=== PATIENT | female | born 1970 | race Caucasian/White ===

== ENCOUNTER 2017-07-12 12:29 | Emergency (ER) | payer BC, OTHER ==
[~2017-07-12] VITALS: Ht 162.6 cm; Wt 93.2 kg
[2017-07-12 12:34] VITALS: TEMP 36.4; Ht 162.6 cm; Wt 93.2 kg
[2017-07-12] MEDS ORDERED: HYDROmorphone INJ 1 MG/ML SYR IV STA (12:51)
[2017-07-12] MEDS ORDERED: ONDANSETRON INJ 2 MG/ML 2 ML VIAL IV STA (12:51)
[2017-07-12 13:23] LABS: BASO % 0.3 %; BASO ABS # 0.03 K/uL (0-0.2); EOS % 2.9 %; EOS ABS # 0.34 K/uL (0-0.5); HEMATOCRIT 49.1 % (37-47); HEMOGLOBIN 17.6 g/dL (12.0-16.0); IG# 0.06 K/uL (0.00-0.02); LYMPH % 28.3 %; LYMPH ABS # 3.27 K/uL (1.2-3.4); MEAN CELL VOLUME 93.7 fL (80-100); MEAN CORPUSCULAR HEMOGLOBIN 33.6 pg (25-34); MEAN CORPUSCULAR HGB CONC 35.8 g/dl (32-36); MEAN PLATELET VOLUME 11.4 fL (7.4-10.4); MONO % 8.5 %; MONO ABS # 0.98 K/uL (0.11-0.59); NEUT % 59.5 %; NEUT ABS # 6.87 K/uL (1.4-6.5); PLATELET COUNT 239 K/uL (130-400); RED CELL DISTRIBUTION WIDTH CV 13.3 % (11.5-14.5); RED CELL DISTRIBUTION WIDTH SD 45.1 fL (36.4-46.3); WHITE BLOOD COUNT 11.55 K/uL (4.8-10.8)
[2017-07-12] MEDS ORDERED: MIRT30TA2 PO (13:25)
[2017-07-12] MEDS ORDERED: LISI-789 PO (13:25)
[2017-07-12] MEDS ORDERED: CHOL1000 PO (13:25)
[2017-07-12] MEDS ORDERED: TRAZ100T29 PO (13:25)
[2017-07-12] MEDS ORDERED: ALPR1TAB3 PO (13:25)
[2017-07-12] MEDS ORDERED: OXYC1TAB3 PO (13:25)
[2017-07-12] MEDS ORDERED: PROM6.2521 PO (13:25)
[2017-07-12] MEDS ORDERED: OXYC20TA50 PO (13:25)
[2017-07-12] MEDS ORDERED: LEVO150T9 PO (13:25)
[2017-07-12] MEDS ORDERED: ERGO500037 PO (13:25)
[2017-07-12] MEDS ORDERED: PANT40TA PO (13:25)
--- NOTE | 2017-07-12 13:28 | DIAGNOSTIC IMAGING REPORT ---
CHEST ONE VIEW PORTABLE CLINICAL HISTORY: 47 years-old Female presenting with cough . TECHNIQUE: Portable upright AP view of the chest was obtained. COMPARISON: None. FINDINGS: Cardiomediastinal silhouette normal. Lungs and pleural spaces clear. Partially visualized anterior cervical fusion hardware. Upper abdomen normal. IMPRESSION: 1. No acute cardiopulmonary disease. Electronically signed by: Shailesh Pyle M.D. 07/12/2017 1:26 PM Dictated Date/Time: 07/12/2017 1:26 PM
[2017-07-12 13:39] LABS: CALCIUM 9.1 mg/dl (8.5-10.1); CREATININE 1.06 mg/dl (0.60-1.20); POTASSIUM 3.7 mmol/L (3.5-5.1)
[2017-07-12] MEDS ORDERED: LORAZEPAM 1 MG TAB SL STA (13:52)
--- NOTE | 2017-07-12 15:08 | DIAGNOSTIC IMAGING REPORT ---
LUMBAR SPINE W/O CONTRAST CLINICAL HISTORY: 47 years-old Female presenting with severe lower back pain L leg weak, recent flu symptoms, now with saddle anesthesia after coughing spell, pain radiating down the left leg, numbness and tingling in the left leg. TECHNIQUE: Multisequence, multiplanar MR imaging of the lumbar spine was performed without the use of intravenous contrast. IV contrast: None. COMPARISON: 05/29/2016. FINDINGS: Localizer images: Unremarkable. Bilateral transpedicular screw and sherin fixation of L4-5. Regional susceptibility artifact slightly limits evaluation. Interbody spacer at L4-5 noted. Susceptibility artifact in the superficial soft tissues consistent with postsurgical change. Vertebral bodies demonstrate normal height, alignment, and bone marrow signal intensity. Intervertebral disc spaces at the nonoperative levels are preserved with the exception of L5-S1, which has disc desiccation and mild height loss. There is mild bilateral neural foraminal narrowing at L5-S1 as result. The remaining nonoperative levels demonstrate no evidence of significant degenerative change. No spinal canal narrowing. No other neural foraminal narrowing. Spinal cord ends in good position at L1. Cauda equina normal in morphology. Paraspinal soft tissues within normal limits apart from postoperative change. IMPRESSION: 1. Postsurgical changes of L4-5 posterior lumbar fusion with interbody spacer. 2. Mild degenerative change at L5-S1. Resulting mild bilateral neural foraminal narrowing. 3. No evidence of degenerative change at the remaining levels. No spinal canal. Electronically signed by: Shailesh Pyle M.D. 07/12/2017 3:06 PM Dictated Date/Time: 07/12/2017 3:01 PM
[2017-07-12] MEDS ORDERED: MoRPHine SULFATE 4 MG/ML 1 ML CARP\\VIAL IV STA (15:37)
[2017-07-12] MEDS ORDERED: PRED50TA PO (15:47)
[2017-07-12 16:35] VITALS: BP 107/60; PULSE 85; O2SAT 95
--- NOTE | 2017-07-12 19:37 | EMERGENCY ROOM VISIT NOTE ---
History Report prepared by Braydon: Ciera Hendricks Under the Supervision of: Dr. Juan Hernandez D.O. First contact with patient: 12:40 Chief Complaint: BACK PAIN Stated Complaint: BACK/SADDLE PAIN History of Present Illness The patient is a 47 year old female who presents to the Emergency Room with complaints of constant back pain since yesterday. She states that she was coughing when she heard and audible pop in her neck. She states pain began radiating down from her neck to her back and through the back of her left leg. She states that she stood up and she defecated on herself without warning. She has spinal hardware and chronic back pain, though this pain is new. She notes that movement worsens her pain. She currently rates her pain a 7/10 in severity. She states that she is able to urinate without issue. She states that she has not had a bowel movement since yesterday. She states that she has had pain similar to this in the past, though it was in the right leg. Pt denies headache, change in vision, fevers, chest pain, shortness of breath, nausea, vomiting, diarrhea, pain with urination, and melena. Source of History: patient Onset: since yesterday Position: back Symptom Intensity: 7/10 Timing: constant Modifying Factors (Worsening): movement Associated Symptoms: + neck pain, No fevers, No headache, No chest pain, No SOB, No nausea, No vomiting, No melena, No diarrhea, No urinary symptoms (pain with urination) Note: She notes pain radiating down her back and left leg. She denies any change in vision. Review of Systems See HPI for pertinent positives & negatives. A total of 10 systems reviewed and were otherwise negative. Past Medical & Surgical Medical Problems: (1) Back pain (2) Orthopedic hardware Surgical Problems: (1) History of back surgery Family History No pertinent family history Social History Smoking Status: Current Every Day Smoker Marital Status: single Current/Historical Medications Scheduled Alprazolam (Xanax), 1 MG PO QID Cholecalciferol (Vitamin D3), 1 TAB PO UD Ergocalciferol (Vitamin D 33859 Unit), 50,000 UNIT PO UD Levothyroxine Sodium (Levothyroxine Sodium), 1 TAB PO DAILY Lisinopril (Zestril), 2.5 MG PO DAILY Mirtazapine Soltab (Remeron Soltab), 30 MG PO DAILY Oxycodone Hcl (Oxycontin), 20 MG PO Q12 Pantoprazole (Protonix), 40 MG PO DAILY Prednisone (Prednisone), 50 MG PO DAILY Scheduled PRN Oxycodone Immediate Rel Tab (Roxicodone Ir), 10 MG PO Q6H PRN for Pain Promethazine Hcl (Promethazine Hcl), 5 ML PO QID PRN for Nausea or Vomiting Trazodone Hcl (Trazodone), 100-200 MG PO HS PRN for Sleep Allergies Coded Allergies: Azithromycin (Verified Allergy, Unknown, RASH, ITCHING OF FACE AND THROAT , 07/12/17) Methylparaben (Verified Allergy, Unknown, SHORTNESS OF BREATH,RASH, TACHYCARDIA, 07/12/17) Nitrofurantoin (Verified Allergy, Unknown, UNK, 07/12/17) Oxymorphone (Verified Allergy, Unknown, SHORTNESS OF BREATH,RASH, TACHYCARDIA, 07/12/17) Penicillins (Verified Allergy, Unknown, HIVES, 07/12/17) Tolterodine (Verified Allergy, Unknown, ITCHING, 07/12/17) Unclassified Drugs (Verified Allergy, Unknown, STEROIDAL TRIGGER POINT INJECTION, 07/12/17) FEVER,RASH,SHAKING CHILLS,VOMITING Physical Exam Vital Signs Date Time Temp Pulse Resp B/P (MAP) Pulse Ox O2 Delivery O2 Flow Rate FiO2 07/12/17 16:35 85 18 107/60 95 07/12/17 15:35 99 18 118/75 94 Room Air 07/12/17 13:59 97 16 141/89 96 Room Air 07/12/17 12:34 36.4 107 20 151/84 98 Room Air Physical Exam GENERAL: Sitting up on edge of bed holding lumbar region, alert, well appearing , well nourished, no distress, non-toxic EYE EXAM: normal conjunctiva. OROPHARYNX: no exudate, no erythema, lips, buccal mucosa, and tongue normal and mucous membranes are moist NECK: supple, no nuchal rigidity, no adenopathy, non-tender LUNGS: Clear to auscultation. Normal chest wall mechanics HEART: Tachycardic, no murmurs, S1 normal and S2 normal ABDOMEN: abdomen soft, non-tender, normo-active bowel sounds, no masses, no rebound or guarding. BACK: Back is symmetrical on inspection and there is no deformity, no midline tenderness, no CVA tenderness. Old lower lumbar incision. Severe pain over left SI joint tracking through left gluteus. SKIN: no rashes and no bruising UPPER EXTREMITIES: upper extremities are grossly normal. LOWER EXTREMITIES: No pitting edema. Flexion and extension of hip, knees, ankles , and EHL. 2/4 bilaterally, left slightly weaker than right secondary to pain. Patellar and Achilles refixes 1/4. Gross sensation intact. NEURO EXAM: Normal sensorium. Medical Decision & Procedures ER Provider Diagnostic Interpretation: Radiology results as stated below per my review and the radiologist's interpretation: CHEST ONE VIEW PORTABLE CLINICAL HISTORY: 47 years-old Female presenting with cough . TECHNIQUE: Portable upright AP view of the chest was obtained. COMPARISON: None. FINDINGS: Cardiomediastinal silhouette normal. Lungs and pleural spaces clear. Partially visualized anterior cervical fusion hardware. Upper abdomen normal. IMPRESSION: 1. No acute cardiopulmonary disease. Electronically signed by: Shailesh Pyle M.D. 07/12/2017 1:26 PM Dictated Date/Time: 07/12/2017 1:26 PM LUMBAR SPINE W/O CONTRAST CLINICAL HISTORY: 47 years-old Female presenting with severe lower back pain L leg weak, recent flu symptoms, now with saddle anesthesia after coughing spell, pain radiating down the left leg, numbness and tingling in the left leg. TECHNIQUE: Multisequence, multiplanar MR imaging of the lumbar spine was performed without the use of intravenous contrast. IV contrast: None. COMPARISON: 05/29/2016. FINDINGS: Localizer images: Unremarkable. Bilateral transpedicular screw and sherin fixation of L4-5. Regional susceptibility artifact slightly limits evaluation. Interbody spacer at L4-5 noted. Susceptibility artifact in the superficial soft tissues consistent with postsurgical change. Vertebral bodies demonstrate normal height, alignment, and bone marrow signal intensity. Intervertebral disc spaces at the nonoperative levels are preserved with the exception of L5-S1, which has disc desiccation and mild height loss. There is mild bilateral neural foraminal narrowing at L5-S1 as result. The remaining nonoperative levels demonstrate no evidence of significant degenerative change. No spinal canal narrowing. No other neural foraminal narrowing. Spinal cord ends in good position at L1. Cauda equina normal in morphology. Paraspinal soft tissues within normal limits apart from postoperative change. IMPRESSION: 1. Postsurgical changes of L4-5 posterior lumbar fusion with interbody spacer. 2. Mild degenerative change at L5-S1. Resulting mild bilateral neural foraminal narrowing. 3. No evidence of degenerative change at the remaining levels. No spinal canal. Electronically signed by: Shailesh Pyle M.D. 07/12/2017 3:06 PM Dictated Date/Time: 07/12/2017 3:01 PM Laboratory Results 07/12/17 13:00 Red Blood Count 5.24, Mean Corpuscular Volume 93.7, Mean Corpuscular Hemoglobin 33.6, Mean Corpuscular Hemoglobin Concent 35.8, Mean Platelet Volume 11.4, Neutrophils (%) (Auto) 59.5, Lymphocytes (%) (Auto) 28.3, Monocytes (%) (Auto) 8.5, Eosinophils (%) (Auto) 2.9, Basophils (%) (Auto) 0.3, Neutrophils # (Auto) 6.87, Lymphocytes # (Auto) 3.27, Monocytes # (Auto) 0.98, Eosinophils # (Auto) 0.34, Basophils # (Auto) 0.03 07/12/17 13:00 Test 07/12/17 13:00 White Blood Count 11.55 K/uL (4.8-10.8) Red Blood Count 5.24 M/uL (4.2-5.4) Hemoglobin 17.6 g/dL (12.0-16.0) Hematocrit 49.1 % (37-47) Mean Corpuscular Volume 93.7 fL (80-100) Mean Corpuscular Hemoglobin 33.6 pg (25-34) Mean Corpuscular Hemoglobin Concent 35.8 g/dl (32-36) Platelet Count 239 K/uL (130-400) Mean Platelet Volume 11.4 fL (7.4-10.4) Neutrophils (%) (Auto) 59.5 % Lymphocytes (%) (Auto) 28.3 % Monocytes (%) (Auto) 8.5 % Eosinophils (%) (Auto) 2.9 % Basophils (%) (Auto) 0.3 % Neutrophils # (Auto) 6.87 K/uL (1.4-6.5) Lymphocytes # (Auto) 3.27 K/uL (1.2-3.4) Monocytes # (Auto) 0.98 K/uL (0.11-0.59) Eosinophils # (Auto) 0.34 K/uL (0-0.5) Basophils # (Auto) 0.03 K/uL (0-0.2) RDW Standard Deviation 45.1 fL (36.4-46.3) RDW Coefficient of Variation 13.3 % (11.5-14.5) Immature Granulocyte % (Auto) 0.5 % Immature Granulocyte # (Auto) 0.06 K/uL (0.00-0.02) Anion Gap 4.0 mmol/L (3-11) Est Creatinine Clear Calc Drug Dose 71.1 ml/min Estimated GFR () 71.4 Estimated GFR (Non- 61.6 BUN/Creatinine Ratio 14.0 (10-20) Calcium Level 9.1 mg/dl (8.5-10.1) Laboratory results per my review. Medications Administered Medications (Trade) Dose Ordered Sig/Ministerio Route Start Time Stop Time Status Last Admin Dose Admin Hydromorphone HCl (Dilaudid Inj) 1 mg NOW STAT IV 07/12/17 12:51 07/12/17 12:54 DC 07/12/17 13:23 1 MG Ondansetron HCl (Zofran Inj) 4 mg NOW STAT IV 07/12/17 12:51 07/12/17 12:54 DC 07/12/17 13:23 4 MG Lorazepam (Ativan Tab) 1 mg NOW STAT SL 07/12/17 13:52 07/12/17 13:53 DC 07/12/17 13:55 1 MG Morphine Sulfate (MoRPHine SULFATE INJ) 4 mg NOW STAT IV 07/12/17 15:37 07/12/17 15:38 DC 07/12/17 15:43 4 MG ED Course ED COURSE: Vital signs were reviewed and showed tachycardic and hypertensive. The patients medical record was reviewed The above diagnostic studies were performed and reviewed. ED treatments and interventions as stated above. 1243: The patient was evaluated in room B3B. A complete history and physical examination was performed. 1251: Ordered Zofran 4 mg IV and Dilaudid 1 mg IV 1349: I reassessed the patient at this time. She is still in pain. 1352: Ordered Ativan 1 mg SL 1537: Ordered Morphine Sulfate 4 mg IV 1540: Upon reevaluation, the patient is feeling better. I discussed my findings with the patient and she understands and agrees with the treatment plan. Based on the patients age, coexisting illnesses, exam and lab findings the decision to treat as an outpatient was made. The patient remained stable while under my care. The patient appeared well at the time of discharge. Medical Decision Differential diagnoses includes but is not limited to lumbar radiculopathy, muscle strain, facture, cauda equina, mass, and disc herniation. Patient is a 38-year-old female who presents to ER for severe left lower back pain radiating into her left leg. She is neurovascularly and neurologically intact with mild weakness which is secondary to effort due to pain as when asked she will point to the pain and strength is equal. MRI shows no acute pathology. Pain was controlled with IV Dilaudid 2. She was given steroids and she was discharged to follow-up with PCP as an outpatient. CBC and BMP was unremarkable. Discussed with Pt concerning signs and symptoms to watch out for. Pt was instructed to follow up with their PCP and discussed with the patient their option to return to the ED at anytime for persistent or worsening symptoms. The appropriate anticipatory guidance and out-patient management, including indications for return to the emergency department, were explained at length to the patient and understood. Medication Reconcilliation Current Medication List: was personally reviewed by me Blood Pressure Screening Patient's blood pressure: Elevated blood pressure Blood pressure disposition: Elevated BP felt to be situational Impression Primary Impression: Low back pain Additional Impression: Radiculopathy Scribe Attestation The scribe's documentation has been prepared under my direction and personally reviewed by me in its entirety. I confirm that the note above accurately reflects all work, treatment, procedures, and medical decision making performed by me. Departure Information Dispostion Home / Self-Care Prescriptions Prednisone (PREDNISONE) 50 Mg Tab 50 MG PO DAILY for 4 Days, TAB Prov: Juan Hernandez DO 07/12/17 Referrals Alex Chu DO (PCP) Forms HOME CARE DOCUMENTATION FORM, IMPORTANT VISIT INFORMATION Patient Instructions Back Pain - [facility], [facility] [place] Additional Instructions Please follow up with your primary care doctor with in the next 24 hours. Any worsening of your symptoms, please return to the ED immediately. This includes any fevers greater than 100.4, worsening pain, numbness or weakness in your leg or groin unable to urinate, unable to move your bowels or any other concerning signs or symptoms from your standpoint. Please take steroids as prescribed. Problem Qualifiers Primary Impression: Low back pain Chronicity: acute Back pain laterality: left Sciatica presence: with sciatica Sciatica laterality: sciatica of left side Qualified Codes: M54.42 - Lumbago with sciatica, left side Additional Impression: Radiculopathy Spinal region: unspecified Qualified Codes: M54.10 - Radiculopathy, site unspecified
== END 2017-07-12 16:36 | disposition home or self-care (01) ==
LOC: C.EDB 12:30
DX: M54.42 Lumbago with sciatica, left side (principal); M54.16 Radiculopathy, lumbar region; F17.210 Nicotine dependence, cigarettes, uncomplicated; Z79.899 Other long term (current) drug therapy; Z88.0 Allergy status to penicillin; Z88.5 Allergy status to narcotic agent; Z88.1 Allergy status to other antibiotic agents; Z88.8 Allergy status to other drugs, medicaments and biological substances